=== PATIENT | male | born 1970 | race Caucasian/White ===

== ENCOUNTER 2021-06-22 20:36 | Emergency (ER) | payer BC, OTHER ==
[2021-06-22 20:43] VITALS: BP 131/81; PULSE 106; RESP 20; TEMP 98.7
[2021-06-22] MEDS ORDERED: KETOROLAC 15 MG/ML 1 ML VIAL IM STA (20:50)
--- NOTE | 2021-06-22 21:08 | XR ---
Result: History: Pain. Comparison: None available. Technique: 3 views of the left ankle. Findings: There is soft tissue edema overlying the lateral malleolus. No acute fracture or dislocation is seen. The visualized osseous structures are in anatomic alignment. The talar dome is intact and the ankl e mortise is congruent. The joint spaces are preserved. Impression: Soft tissue edema without acute osseous abnormality.
--- NOTE | 2021-06-22 21:29 | ED ---
Lower Extremity Injury HPI - General Chief Complaint: Extremity Injury, Lower Stated Complaint: LT ankle injury Time Seen by Provider: 06/22/21 20:45 Source: patient, RN notes reviewed Mode of arrival: wheelchair Limitations: no limitations - History of Present Illness Initial Comments: Patient is a 50-year-old male that presents to the emergency department complaining of left ankle pain. He notes that he felt something pop after climbing down off of a tractor. He notes that it is swollen on the lateral aspect moderately tender stated his pain was approximately a 6 out of 10. He did note that he is able to bear weight and walk on it with low bit of a hobble. He denied any other issues or complaints at this time. Patient noted that he did have full sensation and feeling in his left foot. He denied any chest pain first breath headache nausea vomiting diarrhea constipation fever fatigue chills. - Related Data Previous Rx's Medication Instructions Recorded Ibuprofen [Motrin] 800 mg PO Q6HR #30 tab 06/22/21 Allergies Allergy/AdvReac Type Severity Reaction Status Date / Time No Known Allergies Allergy Verified 06/22/21 21:06 Review of Systems ROS Statement: Those systems with pertinent positive or pertinent negative responses have been documented in the HPI. ROS Other: All systems not noted in ROS Statement are negative. Past Medical History Past Medical History: No Reported History History of Any Multi-Drug Resistant Organisms: None Reported Past Surgical History: Hernia Repair Past Psychological History: Depression Smoking Status: Never smoker Past Alcohol Use History: None Reported Past Drug Use History: None Reported General Exam Limitations: no limitations General appearance: alert, in no apparent distress Head exam: Present: atraumatic, normocephalic, normal inspection Eye exam: Present: normal appearance, PERRL, EOMI. Absent: scleral icterus, conjunctival injection, periorbital swelling Neck exam: Present: normal inspection Respiratory exam: Present: normal lung sounds bilaterally. Absent: respiratory distress, wheezes, rales, rhonchi, stridor Cardiovascular Exam: Present: regular rate, normal rhythm, normal heart sounds. Absent: systolic murmur, diastolic murmur, rubs, gallop, clicks Left Ankle exam: Present: tenderness (Lateral malleoli), swelling (Over the lateral malleoli), ecchymosis (Over the lateral malleoli). Absent: normal inspection, full ROM (Secondary to pain) Neurological exam: Present: alert, oriented X3 Psychiatric exam: Present: normal affect, normal mood Skin exam: Present: warm, dry, intact, normal color. Absent: rash Course Vital Signs 06/22/21 20:40 Temperature 98.7 F Pulse Rate 106 H Respiratory 20 Rate Blood Pressure 131/81 O2 Sat by Pulse 97 Oximetry Medical Decision Making - Medical Decision Making 50-year-old male complaining of left ankle pain after hearing a pop after getting off of a tractor. X-ray of the left ankle, 50 mg of Toradol ordered. X-ray negative for any acute fractures dislocations. Patient has a ankle sprain and will be given a air splint. Case discussed with Dr. Betancur, patient can discharge home with follow-up primary care. Disposition Clinical Impression: Ankle sprain Disposition: HOME SELF-CARE Condition: Stable Instructions (If sedation given, give patient instructions): Ankle Sprain (ED) Additional Instructions: Please return to the Emergency Department if symptoms worsen or any other concerns. Follow-up with primary care in the next several days. Use as tolerated, rest for a few days avoiding any excessive walking or weightbearing. Wear splints throughout the day may take off to bathe. Take Motrin as prescribed. Prescriptions: Ibuprofen [Motrin] 800 mg PO Q6HR #30 tab Is patient prescribed a controlled substance at d/c from ED?: No Referrals: Prakash Lal DO [Primary Care Provider] - 1-2 days Time of Disposition: 21:28
== END 2021-06-22 21:38 | disposition home or self-care (01) ==
LOC: EC 20:36
DX: S93.402A Sprain of unspecified ligament of left ankle, initial encounter (principal); F32.9 Major depressive disorder, single episode, unspecified; X58.XXXA Exposure to other specified factors, initial encounter
CPT/HCPCS: 96372; 99283

== ENCOUNTER → 2021-12-13 | Outpatient (CLI) | payer OTHER ==
--- NOTE | 2021-12-14 10:46 | ECHOF ---
Referral Reason:I35.1 nonrheumatic aortic valve insufficiency MEASUREMENTS -------- HEIGHT: 182.9 cm WEIGHT: 90.3 kg BP: IVSd: 1.3 cm (0.6 - 1.1) LVIDd: 4.8 cm (3.9 - 5.3) LVPWd: 1.3 cm (0.6 - 1.1) IVSs: 1.4 cm LVIDs: 3.5 cm LVPWs: 1.7 cm LA Diam: 3.6 cm (2.7 - 3.8) LAESV Index (A-L): 17.92 ml/m Ao Diam: 4.3 cm (2.0 - 3.7) MV EXCURSION: 13.883 mm (> 18.000) MV EF SLOPE: 48 mm/s (70 - 150) EPSS: 1.1 cm AV maxP.24 mmHg AV meanP.09 mmHg AR PHT: 1031 ms RAP: 5.00 mmHg RVSP: 34.42 mmHg FINDINGS -------- Sinus rhythm. This was a technically good study. The left ventricular size is normal. There is mild concentric left ventricular hypertrophy. Overa ll left ventricular systolic function is normal with, an EF between 55 - 60 %. The right ventricle is normal in size. Normal LA size by volume 22+/-6 ml/m2. The right atrial size is normal. There is moderate aortic regurgitation. There is mild aortic stenosis present. Peak/mean gradient across the Aortic Valve is 24.24mmHg / 12.09mmHg. Functionally bicuspid aortic valve. Mild mitral regurgitation is present. Mild tricuspid regurgitation present. Right ventricular systolic pressure is normal at < 35 mmHg. There is no pulmonic regurgitation present. Aortic Root is dilated and measures 4.3cm. There is no pericardial effusion. CONCLUSIONS -------- 1. The left ventricular size is normal. 2. There is mild concentric left ventricular hypertrophy. 3. Overall left ventricular systolic function is normal with, an EF between 55 - 60 %. 4. The right ventricle is normal in size. 5. Normal LA size by volume 22+/-6 ml/m2. 6. The right atrial size is normal. 7. There is moderate aortic regurgitation. 8. There is mild aortic stenosis present. 9. Peak/mean gradient across the Aortic Valve is 24.24mmHg / 12.09mmHg. 10. Functionally bicuspid aortic valve. 11. Mild mitral regurgitation is present. 12. Mild tricuspid regurgitation present. 13. There is no pulmonic regurgitation present. 14. Aortic Root is dilated and measures 4.3cm. 15. There is no pericardial effusion. SPEECH WRITER: Ember Ingram RDCS
== END | disposition home or self-care (01) ==
LOC: RADECHMAIN 15:48
PROVIDERS: ATTEND Family Medicine
DX: I08.3 Combined rheumatic disorders of mitral, aortic and tricuspid valves (principal)
CPT/HCPCS: 93306

== ENCOUNTER 2022-01-02 08:14 | Day surgery (SDC) | payer OTHER ==
[2021-12-31 11:56] VITALS: BMI 26.9
[~2022-01-02 08:14] MED LIST: LIDOCAINE 1% (10MG/ML) FOR IV START INTRADERMA PRN
[2022-01-02 08:34] VITALS: TEMP 97
[2022-01-02] MEDS: LACTATED RINGERS 1,000 ML IV SCH ×2 (08:40→08:45)
[2022-01-02] MEDS ORDERED: LIDOCAINE 1% INJ 10MG/ML (20 ML MDV) ONE (08:45)
[2022-01-02] MEDS ORDERED: PROPOFOL 10 MG/ML 20 ML VIAL IV ONE (08:45)
--- NOTE | 2022-01-02 09:04 | P.PCN ---
Date of Procedure: 01/02/22 Procedure(s) Performed: BRIEF HISTORY: Patient is a 51-year-old pleasant white male scheduled for an elective colonoscopy as a part of screening for colorectal neoplasia PROCEDURE PERFORMED: Colonoscopy with snare polypectomy. PREOPERATIVE DIAGNOSIS: screening for colon cancer. IV sedation per Anesthesia. PROCEDURE: After informed consent was obtained, the patient, was brought into the endoscopy unit. IV sedation was administered by Anesthesia under continuous monitoring. Digital rectal examination was normal. Initially the Olympus CF-160 flexible video colonoscope was then inserted in the rectum, gradually advanced into the cecum without any difficulty. Careful examination was performed as the scope was gradually being withdrawn. Ileocecal valve and the appendiceal orifice were visualized and appeared normal. Prep was excellent. Mucosa of the cecum, ascending colon, transverse colon, descending colon, appeared normal. The sigmoid: There was a 7 mm polyp removed by snare polypectomy. Scattered sigmoid diverticula seen. In the rectum there was a 5 mm polyp that was removed by sn are polypectomy.Retroflexion was performed in the rectum and no lesions were seen. The patient tolerated the procedure well. IMPRESSION: 7 mm; sigmoid polyp status post polypectomy 5 mm rectal polyp status post polypectomy Scattered sigmoid diverticulosis RECOMMENDATIONS: Findings of this examination were discussed with the patient as well as his family. He was advised to follow up with the biopsy results. If the biopsy reveals adenoma he can have a repeat colonoscopy in 5 years..
[2022-01-02 09:30] VITALS: BP 108/72; PULSE 89; RESP 16
== END 2022-01-02 09:49 | disposition home or self-care (01) ==
LOC: ORWHC2ENDO 08:14
PROVIDERS: ATTEND Internal Medicine Gastroenterology
DX: Z12.11 Encounter for screening for malignant neoplasm of colon (principal); K63.5 Polyp of colon; K62.1 Rectal polyp; K57.30 Diverticulosis of large intestine without perforation or abscess without bleeding; Z79.899 Other long term (current) drug therapy; Z87.891 Personal history of nicotine dependence; K21.9 Gastro-esophageal reflux disease without esophagitis; Z87.19 Personal history of other diseases of the digestive system
CPT/HCPCS: 88305; 45385; J2001; J2704

== ENCOUNTER → 2022-01-10 | Outpatient (CLI) | payer OTHER | END | disposition home or self-care (01) | LOC: LABWHC1 13:31 | PROVIDERS: ATTEND Family Medicine | DX: R74.8 Abnormal levels of other serum enzymes (principal) | CPT/HCPCS: 36415; 83690 ==

== ENCOUNTER → 2022-05-08 | Outpatient (CLI) | payer OTHER ==
[2022-05-08 10:55] LABS: African American GFR (CKD) 79.5 (60.0-200.0); Anion Gap 14.5 mmol/L (10.00-18.00); BUN/Creat Ratio 19.17 Ratio (12.00-20.00); Calcium 9.4 mg/dL (8.7-10.3); Carbon Dioxide 26.5 mmol/L (20.0-27.5); Non-African American GFR(CKD) 68.6 (60.0-200.0)
== END | disposition home or self-care (01) ==
LOC: LABWHC1 06:55
PROVIDERS: ATTEND Family Medicine
DX: I10 Essential (primary) hypertension (principal); F10.10 Alcohol abuse, uncomplicated
CPT/HCPCS: 36415; 80048; 82150; 83690; 84425

== ENCOUNTER → 2022-05-31 | Outpatient (CLI) | payer OTHER ==
[2022-05-31 10:49] LABS: ALT 29 U/L (10-49); AST 27 U/L (14-35); Albumin 3.8 g/dL (3.8-4.9); Albumin/Globulin Ratio 1.36 (1.60-3.17); Alkaline Phosphatase 69 U/L (41-126); BUN/Creat Ratio 22.29 Ratio (12.00-20.00); Bilirubin, Conjugated <0.20 mg/dL (0.20-0.40); Blood Urea Nitrogen 31.2 mg/dL (9.0-27.0); Calcium 9.7 mg/dL (8.7-10.3); Carbon Dioxide 26.9 mmol/L (20.0-27.5); Chloride 104 mmol/L (96-109); GGT 33 U/L (0-73); Globulin 2.8 g/dL (1.6-3.3); Glucose 56 mg/dL (70-110); Lipase 55 U/L (14-60); Potassium 4.7 mmol/L (3.5-5.5); Sodium 140 mmol/L (135-145); Total Protein 6.6 g/dL (6.2-8.2)
== END | disposition home or self-care (01) ==
LOC: LABWHC1 07:09
PROVIDERS: ATTEND Family Medicine
DX: R89.9 Unspecified abnormal finding in specimens from other organs, systems and tissues (principal)
CPT/HCPCS: 36415; 80048; 80076; 82977; 83690

== ENCOUNTER → 2023-05-09 | Outpatient (CLI) | payer BC ==
--- NOTE | 2023-05-09 17:45 | CA ---
Transthoracic Echo Report Name: Jacky Li Age: 52 Gender: M : 1970 Exam Date: 05/09/2023 15:04 Exam Location: [facility] Ht (in): 72 Wt (lb): 185 Ordering Physician: Prakash Lal DO Attending/Referring Phys: Freight Brake Operator Jenny Vaca RDCS Procedure CPT: Indications: I35.1 NONRHEUMATIC AORTIC (VALVE) INSUFFICIENCY Cardiac Hx: Technical Quality: Good Contrast 1: Total Dose (mL): Contrast 2: Total Dose (mL): MEASUREMENTS (Male / Female) Normal Values 2D ECHO LV Diastolic Diameter PLAX 5.2 cm 4.2 - 5.9 / 3.9 - 5.3 cm LV Systolic Diameter PLAX 3.4 cm IVS Diastolic Thickness 1.0 cm 0.6 - 1.0 / 0.6 - 0.9 cm LVPW Diastolic Thickness 1.0 cm 0.6 - 1.0 / 0.6 - 0.9 cm LV Relative Wall Thickness 0.4 RV Internal Dim ED PLAX 3.5 cm LVOT Diameter 2.8 cm LA Systolic Diameter LX 3.2 cm 3.0 - 4.0 / 2.7 - 3.8 cm LV Diastolic Volume MOD 4C 88.1 cm??? LV Systolic Volume MOD 4C 41.9 cm??? LV Ejection Fraction MOD 4C 52.4 % LV Cardiac Index MOD 4C 1404.7 cm???/min???m??? LV Diastolic Length 4C 8.6 cm LV Systolic Length 4C 6.9 cm LV Diastolic Volume MOD 2C 63.4 cm??? LV Systolic Volume MOD 2C 29.1 cm??? LV Ejection Fraction MOD 2C 54.1 % LV Cardiac Index MOD 2C 1042.3 cm???/min???m??? LV Diastolic Length 2C 8.0 cm LV Systolic Length 2C 6.4 cm LA Volume 32.7 cm??? 18 - 58 / 22 - 52 cm??? M-MODE Aortic Root Diameter MM 4.0 cm MV E Point Septal Separation 1.2 cm AV Cusp Separation MM 1.8 cm DOPPLER AV Peak Velocity 231.6 cm/s AV Peak Gradient 21.5 mmHg AV Mean Velocity 144.2 cm/s AV Mean Gradient 9.8 mmHg AV Velocity Time Integral 43.8 cm AI Peak Velocity 447.1 cm/s AI Peak Gradient 80.0 mmHg AI Pressure Half Time 913.9 ms LVOT Peak Velocity 79.7 cm/s LVOT Peak Gradient 2.5 mmHg AV Area Cont Eq pk 2.2 cm??? MV Area PHT 1.9 cm??? Mitral E Point Velocity 58.9 cm/s Mitral A Point Velocity 72.9 cm/s Mitral E to A Ratio 0.8 MV Deceleration Time 394.4 ms MV E' Velocity 6.5 cm/s Mitral E to MV E' Ratio 9.1 TR Peak Velocity 246.1 cm/s TR Peak Gradient 24.2 mmHg Right Ventricular Systolic Press 28.8 mmHg FINDINGS Left Ventricle Left ventricular ejection fraction is estimated at 55-60 %. Left ventricular cavity size normal. Left ventricular wall thickness normal. Normal left ventricular wall motion.normal left ventricular diastolic filling pattern. Right Ventricle Mild right ventricular dilatation. Right ventricular systolic pressure within normal limits. Right Atrium Normal right atrial size. Left Atrium Normal left atrial size. Mitral Valve Structurally normal mitral valve. No mitral stenosis, or prolapse.mild mitral regurgitation. Aortic Valve Bicuspid aortic valve. moderate sclerosis. Mild aortic stenosis with a peak gradient of 22 mmHg and a mean gradient of 10 mmHg. moderate aortic regurgitation. Tricuspid Valve Structurally normal tricuspid valve. Mild tricuspid regurgitation. Pulmonic Valve Structurally normal pulmonic valve. Trace pulmonic regurgitation. Pericardium No pericardial effusion. Normal pericardium. Aorta Mild aortic dilatation at the level of the sinuses of valsalva 40 mm CONCLUSIONS 1. Normal liver ventricle size and systolic function 2. Bicuspid aortic valve with moderate aortic regurgitation and mild aortic stenosis 3. Mild mitral and tricuspid regurgitation Previewed by: Dr. Brenda Ruelas MD (Electronically Signed) Final Date: 09 May 2023 17:44
== END | disposition home or self-care (01) ==
LOC: RADECHMAIN 15:00
PROVIDERS: ATTEND Family Medicine
DX: I08.3 Combined rheumatic disorders of mitral, aortic and tricuspid valves (principal)
CPT/HCPCS: 93306

== ENCOUNTER → 2024-10-15 | Outpatient (CLI) | payer BC ==
--- NOTE | 2024-10-16 10:36 | US ---
EXAMINATION TYPE: US bladder DATE OF EXAM: 10/15/2024 COMPARISON: NONE CLINICAL INDICATION: Male, 53 years old with history of N39.0 URINARY TRACT INFECTION, SITE NOT SPECI FIED; TECHNIQUE: Grayscale and color doppler imaging of the bilateral kidneys and urinary bladder. FINDINGS: EXAM MEASUREMENTS: Pre void 45 ml Post Void Residual Volume: 45 mL STAFFING ASSOCIATE NOTES: Patient unable to void. Color Doppler performed to assess ureteral jets. Bilateral Jets seen: no Normal Post Void Residual (less than 50ml): Unable to void. IMPRESSION: Limited study given the poor bladder distention. [facility], , 10/16/2024 10:33 AM
== END | disposition home or self-care (01) ==
LOC: RADUSWWP 15:58
PROVIDERS: ATTEND Family Medicine
DX: N39.0 Urinary tract infection, site not specified (principal); Z87.440 Personal history of urinary (tract) infections; R33.9 Retention of urine, unspecified
CPT/HCPCS: 76857